=== PATIENT | male | born 1980 | race American Indian/Alaskan Native ===

== ENCOUNTER 2017-01-23 17:50 | Emergency (ER) | payer SELFPAY ==
[2017-01-23 18:23] LABS: Basophils % (Auto) 0.9 % (0.0-1.8); Eosinophils % (Auto) 1.6 % (0.0-4.3); Hematocrit 42.2 % (35.5-45.6); Hemoglobin 14.3 gm/dl (11.8-15.2); Mean Corpuscular HGB Conc 34 % (32-34); Mean Corpuscular Hemoglobin 30 pg (28-32); Mean Corpuscular Volume 90 fl (84-94); Platelet Count 260 K/mm3 (140-440); Red Blood Count 4.69 M/mm3 (3.65-5.03); Red Cell Distribution Width 12.8 % (13.2-15.2); White Blood Count 6.6 K/mm3 (4.5-11.0)
[2017-01-23 18:46] LABS: Anion Gap 16 mmol/L; BUN/Creatinine Ratio 10.76; Blood Urea Nitrogen 14 mg/dL (9-20); Calcium 9.1 mg/dL (8.4-10.2); Carbon Dioxide 28 mmol/L (22-30); Chloride 103.3 mmol/L (98-107); Glucose 98 mg/dL (75-100); Potassium 4.2 mmol/L (3.6-5.0); Sodium 143 mmol/L (137-145)
--- NOTE | 2017-01-23 21:31 | Emergency Department Report ---
ED Chest Pain HPI - General Chief Complaint: Chest Pain Stated Complaint: CHEST PAIN Time Seen by Provider: 01/23/17 21:22 Source: patient Mode of arrival: Ambulatory Limitations: No Limitations - History of Present Illness Initial Comments: This is a pleasant 36-year-old gentleman who reports being in bed this morning already awake HAVING SUDDEN ONSET RIGHT-SIDED CHEST PAIN. HE GOT UP FROM BED AND SAT IN THE BATHROOM WAITING FOR THE PAIN TO RESOLVE. IT DID NOT CHANGE SO HE CALLED 911. EMS ARRIVED AND DID ECG. THEY DID REASSURE HIM THE CT LOOKED NORMAL. AT THAT POINT THE PATIENT REFUSED TRANSPORT TO THE HOSPITAL. HE STATES THAT THE PAIN DID SOMEWHAT SUBSIDE AT THAT POINT BUT THROUGHOUT THE DAYS CONTINUE TO HAVE SOME INKLINGS OF THE PAIN. HE STATES THAT IT IS SOMEWHAT WORSE WITH THE MOVEMENT ACTIVITIES. HE DENIES ANY SHORTNESS OF BREATH ASSOCIATED WITH THIS. HE DENIES ANY SPECIFIC TRAUMA. HE DENIES ANY HEAVY LIFTING OR ACTIVITIES WOULDN'T CAUSE MUSCULOSKELETAL DISCOMFORTS RECENTLY. HE DENIES ANY PRIOR HISTORY OF HEART PROBLEMS. HE STATES HE DOES NOT FOLLOW UP WITH HER DOCTOR. THE DOES REPORT A FAMILY HISTORY OF HYPERTENSION AND DIABETES. NO CORONARY ARTERY DISEASE. PATIENT DOES NOT SMOKE HE HAS BEEN TOLD THAT HE HAS HIGH CHOLESTEROL IN THE PAST. Severity scale (0 -10): 3 Improves With: rest Worsens With: movement - Related Data Allergies Allergy/AdvReac Type Severity Reaction Status Date / Time No Known Allergies Allergy Unverified 01/23/17 18:01 REJI score - Reji Score Age > 65: (0) No Aspirin use within the Past 7 Days: (0) No 3 or more CAD Risk Factors: (0) No 2 or more Angina events in past 24 hrs: (1) Yes Known CAD with more than 50% Stenosis: (0) No Elevated Cardiac Markers: (0) No ST Deviation Greater than 0.5mm: (0) No REJI Score: 1 ED Review of Systems ROS: Stated complaint: CHEST PAIN Other details as noted in HPI Comment: All other systems reviewed and negative Constitutional: denies: chills, fever Eyes: denies: eye pain, eye discharge, vision change ENT: denies: ear pain, throat pain Respiratory: denies: cough, shortness of breath, wheezing Cardiovascular: chest pain. denies: palpitations Endocrine: no symptoms reported Gastrointestinal: denies: abdominal pain, nausea, diarrhea Genitourinary: denies: urgency, dysuria Musculoskeletal: denies: back pain, joint swelling, arthralgia Skin: denies: rash, lesions Neurological: denies: headache, weakness, paresthesias Psychiatric: denies: anxiety, depression Hematological/Lymphatic: denies: easy bleeding, easy bruising ED Past Medical Hx - Past Medical History Previous Medical History?: No - Surgical History Past Surgical History?: No - Social History Smoking Status: Never Smoker Substance Use Type: None ED Physical Exam - General Limitations: No Limitations General appearance: alert, in no apparent distress - Head Head exam: Present: atraumatic, normocephalic - Eye Eye exam: Present: normal appearance, EOMI. Absent: scleral icterus - ENT ENT exam: Present: normal exam, normal orophraynx, mucous membranes moist - Neck Neck exam: Present: normal inspection - Respiratory Respiratory exam: Present: normal lung sounds bilaterally. Absent: respiratory distress - Cardiovascular Cardiovascular Exam: Present: regular rate, normal rhythm. Absent: systolic murmur, diastolic murmur, rubs, gallop - GI/Abdominal GI/Abdominal exam: Present: soft, normal bowel sounds. Absent: tenderness, guarding - Rectal Rectal exam: Present: deferred - Extremities Exam Extremities exam: Present: normal inspection. Absent: tenderness, normal capillary refill, pedal edema, calf tenderness - Back Exam Back exam: Present: normal inspection. Absent: CVA tenderness (R), CVA tenderness (L) - Neurological Exam Neurological exam: Present: alert, oriented X3 - Psychiatric Psychiatric exam: Present: normal affect, normal mood - Skin Skin exam: Present: warm, dry, intact, normal color. Absent: rash ED Course Vital Signs 01/23/17 01/23/17 01/23/17 18:01 21:51 21:53 Temperature 98.5 F Pulse Rate 75 63 Respiratory 18 18 Rate Blood Pressure 136/88 O2 Sat by Pulse 100 100 Oximetry - Reevaluation(s) Reevaluation #1: 01/23/17 21:23 ECG at [id number] normal sinus rhythm at 72 bpm with a normal CA and QRS. Normal axis noted. No acute ST segment elevation or depression is appreciated. ED Medical Decision Making - Lab Data Result diagrams: 01/23/17 18:13 01/23/17 18:13 - Radiology Data Radiology results: image reviewed interpreted by me: normal - Medical Decision Making Labs are noted. They are unremarkable. Patient in general has an unremarkable examination as well. His ECG is excellent. His chest x-ray is normal. Very low suspicion for cardiac etiology. Patient is perk negative. I have very low suspicion for PE as well. No further evaluation from this standpoint. I did discuss with the patient possibilities including possible dyspepsia or gas as well as pleurisy as alternative etiologies for his pain. He doesn't really fit and into any of these specifically. I have a very low concern for significant pathology however. I did encourage anti-inflammatories at home for possibility of musculoskeletal versus pleuritic type of discomforts. He is agreeable with this plan. Given referral for a primary physician as well. Critical care attestation.: If time is entered above; I have spent that time in minutes in the direct care of this critically ill patient, excluding procedure time. ED Disposition Clinical Impression: Non-cardiac chest pain Disposition: DISCHARGED TO HOME OR SELFCARE Is pt being admited?: No Does the pt Need Aspirin: No Condition: Stable Instructions: Chest Pain (ED) Additional Instructions: Consider ibuprofen 4 year pains or discomforts. Follow-up with your doctor for continued evaluation and care. Return if worsening. Referrals: ARABELLA GANNON MD, PHD [Staff Physician] - 3-5 Days Time of Disposition: 22:05
[2017-01-23 22:17] VITALS: BP 132/80
--- NOTE | 2017-01-24 08:11 | XRay Report ---
ROUTINE CHEST, TWO VIEWS: PA and lateral views demonstrate the heart and mediastinal contour to be of normal size and shape. The lungs are clear and fully expanded and the soft tissues and bony structures are normal. IMPRESSION: Normal study.
== END 2017-01-23 22:17 | disposition home or self-care (01) ==
LOC: ED 17:50
DX: R07.89 Other chest pain (principal)
CPT/HCPCS: 36415; 71020; 80048; 84484; 85025; 93005; 93010

== ENCOUNTER 2018-01-08 19:56 | Emergency (ER) | payer OTHER ==
[2018-01-08 20:35] VITALS: BP 144/81
[2018-01-08] MEDS ORDERED: TYLENOL ONE (20:49)
[2018-01-08] MEDS ORDERED: TYLENOL PO ONE (20:49)
--- NOTE | 2018-01-08 22:25 | XRay Report ---
FINAL REPORT EXAM: XR FINGER(S) 2+V LT HISTORY: pain and swelling of left middle finger TECHNIQUE: Three views right 3rd digit Comparison: None FINDINGS: Normal bony mineralization. No fracture or dislocation identified. On the lateral projection, there is ill-defined cortical thickening along the palmar aspect of the middle phalanx shaft which is poorly delineated. There is no evidence for volar plate avulsion. Correlate for possible subacute injury. IMPRESSION: Ill-defined cortical thickening palmar aspect right 3rd digit middle phalanx. Incompletely assessed. No definite fracture or dislocation. History states left 3rd digit. Images appear to be of the right 3rd digit.
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
== END 2018-01-09 03:15 | disposition home or self-care (01) ==
LOC: ED 19:56
DX: M79.644 Pain in right finger(s) (principal); Z87.891 Personal history of nicotine dependence; S62.602A Fracture of unspecified phalanx of right middle finger, initial encounter for closed fracture; Y04.0XXA Assault by unarmed brawl or fight, initial encounter; Y93.89 Activity, other specified; Y92.89 Other specified places as the place of occurrence of the external cause; Y99.8 Other external cause status
CPT/HCPCS: 99283

== ENCOUNTER 2018-02-21 09:33 | Emergency (ER) | payer OTHER ==
[2018-02-21 09:39] VITALS: BP 132/80
--- NOTE | 2018-02-21 10:01 | Emergency Department Report ---
HPI - General Chief Complaint: Skin Rash Time Seen by Provider: 02/21/18 09:58 - HPI HPI: 37-year-old -[place] male presents to the emergency department with complaint of swelling to the lower lip has been going on since Saturday, 5 days ago, after the patient ate shrimp, brown rice, salmon at [employer]. He said that he has eaten all of those foods previously without any problem and ate that "all Saturday." Later that evening he began having swelling to the lower lip. At this time he also felt like his throat was slightly sore and he was concerned for an allergic reaction. He then went to an urgent care the next day and received a steroid injection and was sent home on oral steroids as well. He says he was also given some type of salve that had a paste consistency. He put this on his lips yesterday for the first time and this morning it appeared stuck to the lip. When he pulled off the paste he says that it took off the top layer of the skin of his lip. He denies any past medical history. He is not on any medications on a daily basis. He denies any fever. ED Past Medical Hx - Past Medical History Previous Medical History?: No - Surgical History Past Surgical History?: No - Social History Smoking Status: Never Smoker Substance Use Type: None - Medications Home Medications: Home Medications Medication Instructions Recorded Confirmed Last Taken Type Ibuprofen [Motrin] 600 mg PO Q8H PRN #30 tablet 01/09/18 Unknown Rx Sulfamethoxazole/Trimethoprim 1 each PO BID #10 tablet 02/21/18 Unknown Rx [Bactrim DS TAB] ED Review of Systems ROS: Stated complaint: ALLERGIC REACTION Other details as noted in HPI Comment: All other systems reviewed and negative Constitutional: denies: chills, fever Eyes: denies: eye pain, eye discharge, vision change ENT: denies: ear pain, congestion Respiratory: denies: cough, shortness of breath, wheezing Cardiovascular: denies: chest pain, palpitations Gastrointestinal: denies: abdominal pain, nausea, diarrhea Genitourinary: denies: urgency, dysuria Musculoskeletal: denies: back pain, joint swelling, arthralgia Skin: other (lip rash / lesions). denies: pruritus Neurological: denies: headache, weakness, paresthesias Physical Exam - Physical Exam Vital Signs: Vital Signs 02/21/18 09:36 Temperature 97.6 F Pulse Rate 64 Respiratory 16 Rate Blood Pressure 132/80 O2 Sat by Pulse 100 Oximetry Physical Exam: GENERAL: The patient is well-developed well-nourished. HENT: Normocephalic. Atraumatic. Patient has moist mucous membranes. Oropharynx is clear without any lesions, tonsillar hypertrophy or exudates. No drooling or trismus. EYES: Extraocular motions are intact. Pupils equal reactive to light bilaterally. NECK: Supple. Trachea is midline. CHEST/LUNGS: Clear to auscultation. There is no respiratory distress noted. HEART/CARDIOVASCULAR: Regular. There is no tachycardia. There is no murmur. SKIN: There is some non-pitting swelling and/or angioedema of the lower lip. There appears to be some skin tear and/or wounds to the labial mucosa of the lower lip. No obvious vesicular lesions. No redness surrounding the vermilion border. NEURO: The patient is awake, alert, and oriented. The patient is cooperative. The patient has no focal neurologic deficits. The patient has normal speech. MUSCULOSKELETAL: There is no tenderness or deformity. There is no evidence of acute injury. ED Course Vital Signs 02/21/18 09:36 Temperature 97.6 F Pulse Rate 64 Respiratory 16 Rate Blood Pressure 132/80 O2 Sat by Pulse 100 Oximetry ED Medical Decision Making - Medical Decision Making Patient has been having lower lip swelling for the past 5 days. This is an allergic reaction versus angioedema versus other. However he put on some type of paste or salve on to the labial mucosa of the lower lip and pulled it off this morning and took a layer of skin with it. For this reason, since it is exposed, he will be placed on some antibiotics. He is already on steroids and has about 2 doses left of that. He was encouraged to try some Benadryl but understands it can be sedating. He has been instructed to follow-up with his primary care physician and was given some referrals for dermatology. Since it is just his lower lip and does not involve his tongue or throat, I did not feel that he required any epinephrine or EpiPen for home. - Differential Diagnosis allergic reaction, angioedema, chelitis, herpes labialis Critical Care Time: No Critical care attestation.: If time is entered above; I have spent that time in minutes in the direct care of this critically ill patient, excluding procedure time. ED Disposition Clinical Impression: Lip swelling Disposition: DC- TO HOME OR SELFCARE Is pt being admited?: No Condition: Stable Instructions: Angioedema (ED) Additional Instructions: Please follow-up with your primary care physician in the next few days. I have given you a referral for some local dermatologists. Return to the emergency Department with any worsening of your symptoms or any acute distress. Take the antibiotics as prescribed. Prescriptions: Sulfamethoxazole/Trimethoprim [Bactrim DS TAB] 1 each PO BID #10 tablet Referrals: PRIMARY CARE, [Primary Care Provider] - 3-5 Days SANDRA ELIZONDO MD [Staff Physician] - 3-5 Days CECE STROUD MD [Staff Physician] - 3-5 Days Time of Disposition: 10:03
== END 2018-02-21 10:12 | disposition home or self-care (01) ==
LOC: ED 09:33
DX: R22.0 Localized swelling, mass and lump, head (principal)
CPT/HCPCS: 99281

== ENCOUNTER 2019-12-29 09:15 | Emergency (ER) | payer OTHER ==
[2019-12-29 09:29] VITALS: BP 139/80
--- NOTE | 2019-12-29 12:35 | XRay Report ---
CHEST 2 VIEWS INDICATION: Intermittent chest pain for 4 months. COMPARISON: 01/23/2017 FINDINGS: Support devices: None. Heart: Within normal limits. Lungs/pleura: No acute air space or interstitial disease. No pneumothorax. Additional findings: None. IMPRESSION: No acute findings. Signer Name: Jaden Quevedo Jr, MD Signed: 12/29/2019 12:31 PM Workstation Name: [id number]
--- NOTE | 2019-12-29 12:37 | Emergency Department Report ---
ED Chest Pain HPI - General Chief Complaint: Chest Pain Stated Complaint: CHEST PAIN, SOB Time Seen by Provider: 12/29/19 12:00 Source: patient Mode of arrival: Ambulatory Limitations: No Limitations - History of Present Illness Initial Comments: 39-year-old -[place] male presents to the emergency room for chest pain that he has had for intermittent for months. Patient denies any injury. Patient states that ibuprofen and Tylenol No. 4 does not help with this pain. Patient states that he had this a while back and it just went away. Patient states everything makes it worse and nothing makes it better. Patient denies any lower leg edema. Patient reports he does have a primary care provider Dr. Arabella Bender. Patient denies any past medical history takes no medications on a daily basis and has no known drug allergies. MD Complaint: chest pain Onset/Timin -: month(s) Pain Location: other (Midsternal) Pain Radiation: none Severity: mild Consistency: intermittent Improves With: nothing Worsens With: palpation, movement re: denies: nausea, vomting, diaphoresis, dyspnea, sense of impending doom Other Symptoms: denies: cough Aspirin use within the Past 7 Days: (0) No - Related Data Previous Rx's Medication Instructions Recorded Last Taken Type Ibuprofen [Motrin] 600 mg PO Q8H PRN #30 tablet 01/09/18 Unknown Rx Sulfamethoxazole/Trimethoprim 1 each PO BID #10 tablet 02/21/18 Unknown Rx [Bactrim DS TAB] Allergies Allergy/AdvReac Type Severity Reaction Status Date / Time No Known Allergies Allergy Verified 02/21/18 09:36 Heart Score - HEART Score EKG: Non-specific Age: < 45 Risk factors: No known risk factors ED Review of Systems ROS: Stated complaint: CHEST PAIN, SOB Other details as noted in HPI Comment: All other systems reviewed and negative ED Past Medical Hx - Past Medical History Previous Medical History?: No - Surgical History Past Surgical History?: No - Social History Smoking Status: Never Smoker Substance Use Type: None - Medications Home Medications: Home Medications Medication Instructions Recorded Confirmed Last Taken Type Ibuprofen [Motrin] 600 mg PO Q8H PRN #30 tablet 01/09/18 Unknown Rx Sulfamethoxazole/Trimethoprim 1 each PO BID #10 tablet 02/21/18 Unknown Rx [Bactrim DS TAB] ED Physical Exam - General Limitations: No Limitations General appearance: alert, in no apparent distress - Head Head exam: Present: atraumatic, normocephalic - Eye Eye exam: Present: normal appearance - ENT ENT exam: Present: mucous membranes moist - Neck Neck exam: Present: normal inspection - Respiratory Respiratory exam: Present: normal lung sounds bilaterally. Absent: respiratory distress - Cardiovascular Cardiovascular Exam: Present: regular rate, normal rhythm. Absent: systolic murmur, diastolic murmur, rubs, gallop - GI/Abdominal GI/Abdominal exam: Present: soft, normal bowel sounds - Rectal Rectal exam: Present: deferred - Extremities Exam Extremities exam: Present: normal inspection - Back Exam Back exam: Present: normal inspection - Neurological Exam Neurological exam: Present: alert, oriented X3 - Psychiatric Psychiatric exam: Present: normal affect, normal mood - Skin Skin exam: Present: warm, dry, intact, normal color. Absent: rash ED Course Vital Signs 12/29/19 09:28 Temperature 97.9 F Pulse Rate 86 Respiratory 18 Rate Blood Pressure 139/80 [Right] O2 Sat by Pulse 98 Oximetry ROCK score - Rock Score Age > 65: (0) No Aspirin use within the Past 7 Days: (0) No 3 or more CAD Risk Factors: (0) No 2 or more Angina events in past 24 hrs: (1) Yes Known CAD with more than 50% Stenosis: (0) No Elevated Cardiac Markers: (0) No ST Deviation Greater than 0.5mm: (0) No ROCK Score: 1 ED Medical Decision Making - Medical Decision Making 39-year-old -[place] male presents to the emergency room for chest pain that he has had for intermittent for months. Patient denies any injury. Patient states that ibuprofen and Tylenol No. 4 does not help with this pain. Patient states that he had this a while back and it just went away. Patient states everything makes it worse and nothing makes it better. Patient denies any lower leg edema. Patient reports he does have a primary care provider Dr. Arabella Bender. Patient denies any past medical history takes no medications on a daily basis and has no known drug allergies. EKG normal, chest x-ray normal negative troponin CBC CMP is within normal limits. Recommend for patient to follow-up with his primary care provider for further evaluation on chest pain that is been going on for greater than 1 month. Critical care attestation.: If time is entered above; I have spent that time in minutes in the direct care of this critically ill patient, excluding procedure time. ED Disposition Clinical Impression: Chest pain, atypical Disposition: DC-01 TO HOME OR SELFCARE Is pt being admited?: No Does the pt Need Aspirin: No Condition: Stable Instructions: Chest Pain (ED) Additional Instructions: Chest x-ray is negative labs are within normal limits EKG is within normal limits recommend follow-up with your primary care provider. Referrals: JESS RAMIREZ MD [Primary Care Provider] - 3-5 Days ITZARABELLA Carvajal MD [Referring] - 3-5 Days Forms: Work/School Release Form(ED)
[2019-12-29 14:54] LABS: Basophils # (Auto) 0.1 K/mm3 (0.0-0.1); Basophils % (Auto) 0.7 % (0.0-1.8); Eosinophils # (Auto) 0.1 K/mm3 (0.0-0.4); Eosinophils % (Auto) 0.8 % (0.0-4.3); Hematocrit 44.5 % (35.5-45.6); Hemoglobin 14.9 gm/dl (11.8-15.2); Lymphocytes # (Auto) 1.9 K/mm3 (1.2-5.4); Lymphocytes % (Auto) 27.1 % (13.4-35.0); Mean Corpuscular HGB Conc 33 % (32-34); Mean Corpuscular Volume 93 fl (84-94); Monocytes # (Auto) 0.7 K/mm3 (0.0-0.8); Monocytes % (Auto) 10.8 % (0.0-7.3); Platelet Count 242 K/mm3 (140-440); Red Blood Count 4.81 M/mm3 (3.65-5.03); Red Cell Distribution Width 13.7 % (13.2-15.2)
[2019-12-29 15:02] LABS: BUN/Creatinine Ratio 15; Blood Urea Nitrogen 15 mg/dL (9-20); Calcium 9.7 mg/dL (8.4-10.2); Hemolysis Index 8
== END 2019-12-29 15:52 | disposition home or self-care (01) ==
LOC: ED 09:15
DX: R07.89 Other chest pain (principal); Z79.1 Long term (current) use of non-steroidal anti-inflammatories (NSAID); Z79.899 Other long term (current) drug therapy
CPT/HCPCS: 36415; 71046; 80048; 83690; 84484; 85025; 93005; 93010